=== PATIENT | male | born 1985 | race Caucasian/White ===

== ENCOUNTER → 2023-05-20 16:36 | Outpatient (CLI) | payer OTHER, SELFPAY ==
--- NOTE | 2023-05-20 16:37 | DI.RAD.S_ITS ---
PROCEDURE: XR KNEE LT 3V INDICATIONS: knee contusion TECHNIQUE: 3 views of the knee were acquired. COMPARISON: None. FINDINGS: Bones: No fractures or dislocations. No suspicious bony lesions. Soft tissues: Small joint effusion. No suspicious soft tissue calcifications. IMPRESSION: Small knee joint effusion, without displaced fracture. If there remains a high clinical concern or the patient cannot bear weight, consider cross-sectional imaging to exclude an occult fracture. Dictated by: Danilo Felder M.D. on 05/20/2023 at 17:02 Approved by: Danilo Felder M.D. on 05/20/2023 at 17:03
== END ==
PROVIDERS: PCP Family Medicine; Referring Provider Nurse Practitioner Family; Visit Provider Nurse Practitioner Family
DX: S80.02XA Contusion of left knee, initial encounter (principal); M25.462 Effusion, left knee
CPT/HCPCS: 73562